=== PATIENT | female | born 1950 | race Hispanic/Latino ===

== ENCOUNTER → 2024-12-22 | Outpatient (CLI) | payer OTHER ==
--- NOTE | 2024-12-22 13:37 | HMCSR ---
APPROVED REPORT EXAM: Two-dimensional and M-mode echocardiogram with Doppler and color Doppler. INDICATION ICD: Essential (primary) Hypertension I10.0 2D Dimensions RVDd4.4 cmLVEF(%)79.4 (>50%)LVED Vol(simp.)70.0 mL IVSd0.8 (0.7-1.1cm)FS(%)48 %LVES Vol(simp.)25.0 mL LVDd4.2 (3.8-5.6cm)LA (2D)3.9 (1.6-4.0cm)LVEF(%, simp.)64 % PWd0.9 (0.7-1.1cm)Ao Root(2D)2.4 (2.0-3.7cm)LA ESV INDEX (4CH)34.00 mL/m2 IVSs1.3 cmLVOT diam1.9 (1.8-2.4cm)LA ESV INDEX (2CH)22.50 mL/m2 LVDs2.2 (2.5-4.0cm)LA ESV INDEX (BP)28.00 mL/m2 PWs1.4 cm M-Mode Dimensions EPSS0.6 cm LA (MM)3.5 (1.6-4.0cm) Ao Root(MM)2.8 (2.0-3.7cm) Aortic Valve AoV VTI0.4 mAo Mean GR4.0 mmHgLVOT VTI0.30 m SOFY (VMAX)2.3 cm2AVA (VTI) 2.3 cm2 Mitral Valve MV E Vmax97.2 cm/sDECEL Okcn363 ms MV A Fqtt175.7 cm/sP 1/2 T109 ms E/A ratio1.0MVA (PHT)2.0 cm2 TDI E/E' Ekuxwz28.7E/E' Lateral9.1 Medial E' Peak V5.20 cm/sLateral E' Peak V10.70 cm/s Pulmonary Valve PV Vmax1.4 m/s PV Peak GR8.0 mmHg Tricuspid Valve TR Vmax2.8 m/s TR Peak GR32.0 mmHg Left Ventricle Left ventricular cavity size is normal. There is normal left ventricular wall thickness. LVEF is 60-6 5%. Indeterminate diastolic function. Right Ventricle The right ventricle is mildly dilated. The right ventricular systolic function is normal. Atria The left atrium size is normal. The right atrium size is normal. Aortic Valve The aortic valve is normal in structure and function. No aortic regurgitation is present. There is no aortic valvular stenosis. Mitral Valve The mitral valve is normal in structure and function. There is no mitral valve regurgitation noted. T here is no mitral valve stenosis. Tricuspid Valve The tricuspid valve is normal in structure and function. There is mild tricuspid valve regurgitation noted. Pulmonic Valve Pulmonic valve is not well visualized. There is no pulmonic valvular regurgitation. Great Vessels The aortic root is normal in size. The IVC was not visualized. Pericardium No pericardial effusion. The pericardium appears normal. Other Information Quality : GoodRhythm : NSR Conclusion LVEF is 60-65%. Indeterminate diastolic function. Mild tricuspid valve regurgitation.
== END | disposition home or self-care (01) ==
LOC: RAH 09:26
PROVIDERS: ATTEND Internal Medicine
DX: I07.1 Rheumatic tricuspid insufficiency (principal); I10 Essential (primary) hypertension
CPT/HCPCS: 93306

== ENCOUNTER 2025-09-02 13:46 | Emergency (ER) | payer OTHER ==
[~2025-09-02] VITALS: Ht 149.9 cm; Wt 73.9 kg
[2025-09-02 14:19] LABS: IMMATURE GRANULOCYTE ABSOLUTE 0.02 K/uL (0-1); NUCLEATED RED BLOOD CELLS 0.0 % (0.0-0.19); PLATELET COUNT (AUTO) 261 K/uL (130-400); RED BLOOD CELL COUNT(AUTO) 4.46 MIL/uL (4.00-5.50); RED CELL DISTRIBUTION WIDTH 12.2 % (11.0-15.5); WHITE BLOOD COUNT (AUTO) 8.0 K/uL (4.8-10.8)
[2025-09-02 14:29] LABS: APPEARANCE,URINE CLEAR (CLEAR); GLUCOSE, URINE (UA) NEGATIVE (NEGATIVE); LEUKOCYTE ESTERASE ,URINE NEGATIVE Leu/uL (NEGATIVE); NITRATE,URINE NEGATIVE (NEGATIVE); OCCULT BLOOD,URINE SMALL (NEGATIVE)
[2025-09-02 14:36] LABS: ASPARTATE AMINOTRANSFERASE 18.0 U/L (10-37); CREATININE 0.7 mg/dL (0.5-1.0); GLOMERULAR FILTR. RATE CALC 92.0 mL/min (>90); GLUCOSE,RANDOM 92.0 mg/dL (70-105); SODIUM SERUM 140.0 mmol/L (136-145); TOTAL PROTEIN, SERUM 7.9 g/dL (6.0-8.3); UREA NITROGEN, BLOOD 13.0 mg/dL (7-18)
[2025-09-02 14:50] LABS: ADD UA MICROSCOPIC YES; SQUAMOUS EPITHELIAL CELL,UR RARE /HPF (0-2)
[2025-09-02 15:18] VITALS: BP 138/52; PULSE 62; RESP 20; TEMP 98.1; O2SAT 98
--- NOTE | 2025-09-02 15:55 | ERN ---
ED Note History of Present Illness Stated Complaint: UTI AND URINARY FREQUENCY Chief Complaint: Urinary Frequency Time Seen by MD: 13:48 Dictation: 74-year-old female presenting to the emergency department for pain with urination and discomfort, patient had recent diagnosis of UTI and has been on Keflex antibiotics over the past five days [address] Dr. Guadarrama. Patient denies any chest pain shortness of breath or fever Allergies: Coded Allergies: amlodipine (Unverified Allergy, Unknown, 09/02/25) amoxicillin (Unverified Allergy, Unknown, 09/02/25) ciprofloxacin (Unverified Allergy, Unknown, 09/02/25) clavulanic acid (Unverified Allergy, Unknown, 09/02/25) dexamethasone (Unverified Allergy, Unknown, 09/02/25) doxycycline (Unverified Allergy, Unknown, 09/02/25) mirabegron (Unverified Allergy, Unknown, 09/02/25) nitrofurantoin (Unverified Allergy, Unknown, 09/02/25) prednisone (Unverified Allergy, Unknown, 09/02/25) sulfamethoxazole (Unverified Allergy, Unknown, 09/02/25) tizanidine (Unverified Allergy, Unknown, 09/02/25) trimethoprim (Unverified Allergy, Unknown, 09/02/25) Past Medical History Past Medical History: Other Surgical History: Other Review of System Dictation Constitutional: Negative for fever,chills, and weight loss Eyes: Negative for injury, pain,redness, and discharge ENT: Negative for injury,pain or swelling Cardiovascular: Negative for chest pain, palpitations, and edema Respiratory: Negative for shortness of breath, cough, and wheezing, Abdomen/GI: Negative for abdominal pain, nausea, vomiting, diarrhea, and constipation Back: Negative for injury and pain : Per HPI MS/Extremity: Negative for injury and deformity Skin: Negative for rash, and discoloration Neuro: Negative for headache, weakness, numbness, tingling, and seizure Psych: Negative for suicide ideation, homicidal ideation, and hallucinations Initial Vital Sign VS Vital Signs Date Time Temp Pulse Resp B/P (MAP) Pulse Ox O2 Delivery O2 Flow Rate FiO2 09/02/25 13:51 98.1 60 20 151/49 98 Room Air 09/02/25 14:15 0 21 Physical Exam Dictation General: awake, alert, NAD Head/Face: Normocephalic, atraumatic Eyes: PERRL, EOMI, vision at baseline ENT: oral cavity clear, TMs clear, no signs of infection Neck: Trachea midline, supple, no nuchal rigidity Cardiovascular: RRR, normal S1/S2, No MRGs, no JVD Respiratory: CTAB, no respiratory distress, No rales or wheezes Abdomen: Soft, non-tender, non-distended, normal bowel sounds, no guarding or rebound. Skin: Warm, dry, normal turgor, no rash MS/Extremity: Pulses equal, no cyanosis, neurovascular intact, FROM Neuro: COAx4, GCS 15, strength 5/5, CN 2-12 intact, normal cerebellar exam, normal gait, Psych: Normal behavior, mood, and affect normal Results (Laboratory/Radiology) Laboratory/Radiology Laboratory Tests Test 09/02/25 08:01 09/02/25 14:10 Urine Color COLORLESS (YELLOW) Urine Appearance CLEAR (CLEAR) Urine pH 6.0 (5.0-8.0) Urine Specific Backus 1.003 (1.001-1.031) Urine Protein NEGATIVE mg/dL (NEGATIVE) Urine Glucose (UA) NEGATIVE mg/dL (NEGATIVE) Urine Ketones NEGATIVE mg/dL (NEGATIVE) Urine Occult Blood SMALL (NEGATIVE) H Urine Nitrate NEGATIVE (NEGATIVE) Urine Bilirubin NEGATIVE mg/dL (NEGATIVE) Urine Urobilinogen 0.2 mg/dL (0.2-1.0) Urine Leukocyte Esterase NEGATIVE Jamey/uL Urine RBC 2-5 /HPF (0-1) H Urine WBC 0-1 /HPF (0-1) Urine Squamous Epithelial Cells RARE /HPF (0-2) Urine Bacteria None /HPF (None Seen) White Blood Count 8.0 K/uL (4.8-10.8) Red Blood Count 4.46 MIL/uL (4.00-5.50) Hemoglobin 13.7 g/dL (12.0-16.0) Hematocrit 40.7 % (36-48) Mean Corpuscular Volume 91.3 fL (79-99) Mean Corpuscular Hemoglobin 30.7 pg (27.0-33.0) Mean Corpuscular Hemoglobin Concent 33.7 g/dL (32.0-36.0) Red Cell Distribution Width 12.2 % (11.0-15.5) Platelet Count 261 K/uL (130-400) Mean Platelet Volume 9.1 fL (7.5-10.5) Immature Granulocyte % (Auto) 0.3 % (0-1) Neutrophils (%) (Auto) 72.4 % (40.0-77.0) Lymphocytes (%) (Auto) 20.9 % (21.0-51.0) L Monocytes (%) (Auto) 5.2 % (3.0-13.0) Eosinophils (%) (Auto) 0.9 % (0.0-8.0) Basophils (%) (Auto) 0.3 % (0.0-5.0) Neutrophils # (Auto) 5.8 K/uL (1.8-7.7) Lymphocytes # (Auto) 1.7 K/uL (1.0-4.8) Monocytes # (Auto) 0.4 K/uL (0.1-1.0) Eosinophils # (Auto) 0.07 K/uL (0.00-0.70) Basophils # (Auto) 0.02 K/uL (0.00-0.20) Absolute Immature Granulocyte (auto 0.02 K/uL (0-1) Nucleated Red Blood Cells 0.0 % (0.0-0.19) Sodium Level 140 mmol/L (136-145) Potassium Level 4.3 mmol/L (3.5-5.1) Chloride Level 106 mmol/L (101-111) Carbon Dioxide Level 27 mmol/L (21-32) Blood Urea Nitrogen 13 mg/dL (7-18) Creatinine 0.7 mg/dL (0.5-1.0) Glomerular Filtration Rate Calc 92 mL/min (>90) Random Glucose 92 mg/dL (70-105) Lactic Acid Level 1.6 mmol/L (0.8-2.5) Total Calcium 9.5 mg/dL (8.5-10.1) Total Bilirubin 0.9 mg/dL (0.2-1.0) Direct Bilirubin 0.2 mg/dL (0.0-0.3) Aspartate Amino Transf (AST/SGOT) 18 U/L (10-37) Alanine Aminotransferase (ALT/SGPT) 16 U/L (12-78) Alkaline Phosphatase 96 U/L (50-136) Total Protein 7.9 g/dL (6.0-8.3) Albumin 4.0 g/dL (3.5-5.0) Labs Reviewed?: Yes ED Course ED Course Orders Procedure Category Date Status Time Blood Cult LIZZY 09/02/25 In Process 13:53 Cbc With Differential LAB 09/02/25 Complete 13:53 Basic Metabolic Panel LAB 09/02/25 Complete 13:53 Hepatic Function Panel LAB 09/02/25 Complete 13:53 Lactic Acid LAB 09/02/25 Complete 13:53 Urinalysis Profile LAB 09/02/25 Complete 13:53 Vital Signs Date Time Temp Pulse Resp B/P (MAP) Pulse Ox O2 Delivery O2 Flow Rate FiO2 09/02/25 15:18 98.1 62 20 138/52 98 Room Air* 0 21 09/02/25 14:15 98.1 60 20 151/49 98 Room Air* 0 21 09/02/25 13:51 98.1 60 20 151/49 98 Room Air Medical Decision Making MDM MDM: Differential diagnosis: Rationale: Tests considered and ordered secondary to shared decision making include: Previous outside records reviewed: Old ER visits. Risk of complication and/or morbidity or mortality of patient management: None Medications-Per medication reconciliation Need for hospitalization: Patient does not meet criteria for hospitalization. Need for emergency major/minor surgery: No There are no social concerns with this patient. Prescription drug management Prescriptions will include symptomatic care Patient's prior external medical records from other ER visits were reviewed by me as indicated. Prior testing and results from previous visits were reviewed. Prior tests were taken into account with medical decision making and resource utilization, independent historian/historians were used to obtain complete medical history. I independently interpreted the test that were performed, results were reviewed by me and considered findings on radiology if ordered. Medical management and examination interpretation discussions were had by me with other qualified healthcare professionals as indicated for the patient's care. 74-year-old female with a history area, stable exam negative workup clear urine UTI has been resolved. DX & DISP Disposition: Discharge Departure Impression: Primary Impression: Dysuria Condition: Stable Referrals: CHANA ROSENTHAL MD (PCP) ANYA MARTINES MD Sep 02, 2025 15:55
== END 2025-09-02 16:13 | disposition home or self-care (01) ==
LOC: EDH 13:46
DX: R30.0 Dysuria (principal); Z88.0 Allergy status to penicillin; Z88.1 Allergy status to other antibiotic agents; Z88.8 Allergy status to other drugs, medicaments and biological substances; Z88.2 Allergy status to sulfonamides; R35.0 Frequency of micturition
CPT/HCPCS: 36415; 80048; 80076; 81001; 83605; 85025; 87040; 99283